=== PATIENT | female | born 1955 | race African-American/Black ===

== ENCOUNTER 2017-12-31 08:09 | Day surgery (SDC) | payer OTHER ==
[~2017-12-31] VITALS: Ht 157.5 cm; Wt 76.7 kg
[~2017-12-31 08:09] MED LIST: ACET325 PO; ALPR.25 PO; ALPR.5CR PO; ALPR1 PO; ATOR40TA PO; Anucort-Hc25 MG; Anucort-Hc25 MG PR; Aspirin EC81 MG; CEFP200 PO; CLON.1 PO; CONEST.9 TOP; Calcium 600 MG1 EACH; Calcium 600-D1 EACH PO; Canasa1000 MG; EDARBYCLOR 40-1 EACH PO; FIBER500 MG PO; Fiber Tabs625 MG PO; GABA100 PO; HYDR1TAB94; IBUP400 PO; ISOMON20 PO; LISHYD2025 PO; LOPE2C PO; Loperamide2 MG PO; METR500 PO; NAPR500 PO; NEBI5 PO; Nitrostat0.4 MG SL; Norvasc2.5 MG PO; Omeprazole20 M1 PO; POTA10T PO; POTCHL10ER PO; PREMARIN PATCH; PROM25; RIFA550T2 PO; SERT50 PO; VITAMIN D32000 UNIT PO; [UNRECOGNIZED DRUG - CODE] PR
== END 2017-12-31 10:05 | disposition home or self-care (01) ==
LOC: ORSCSDS 08:09
PROVIDERS: Internal Medicine Gastroenterology
PROC: 0DJD8ZZ Inspection of Lower Intestinal Tract, Via Natural or Artificial Opening Endoscopic (ICD-10-PCS; principal; 2017-12-31 09:30)
DX: R10.30 Lower abdominal pain, unspecified (principal); Z85.038 Personal history of other malignant neoplasm of large intestine; K64.8 Other hemorrhoids; R19.7 Diarrhea, unspecified; I10 Essential (primary) hypertension; Z87.891 Personal history of nicotine dependence; Z79.82 Long term (current) use of aspirin; E11.9 Type 2 diabetes mellitus without complications; Z79.899 Other long term (current) drug therapy
CPT/HCPCS: 82947; J7120

== ENCOUNTER 2019-04-05 09:43 | Day surgery (SDC) | payer OTHER ==
[~2019-04-05] VITALS: Ht 157.5 cm; Wt 72.9 kg
[~2019-04-05 09:43] MED LIST changes: +NAPR500; +Norco 5-325 Ta1 EACH; +Valtrex1000 MG
--- NOTE | 2019-04-05 11:17 | NUR ---
04/05/19 Edita Wells CALLED INTERPRETATIVE SERVICES PT (SPEAKS ONLY NIGERIAN) REFUSED SERVICES. PT WANTS DAUGHTER CJ TO INTERPRET. PT DOES UNDERSTAND A LITTLE BIT OF [place]. ASK PT IF SHE IS CONCERNED ABOUT SAFTEY AT HOME PT STATED "YES" THEN ASKED IF PATIENT WOULD LIKE SOME HELP AND PT STATED "NO"
--- NOTE | 2019-04-05 11:46 | NUR ---
04/05/19 1146 Amelia Cheung (Danay 2MG VERSED IV GIVEN PER DR. LYNNE.
--- NOTE | 2019-04-05 15:08 | NUR ---
04/05/19 1508 Amelia Cheung PT HAS FAINT EXPIRATORY WHEEZE IN LEFT LOWER LOBE. PT INSTRUCTED TO DEEP BREATHE & COUGH. LUNGS RE-EVALUATED AND CLEAR THROUGHOUT.
== END 2019-04-05 12:31 | disposition home or self-care (01) ==
LOC: ORSCSDS 09:43
PROVIDERS: Internal Medicine Gastroenterology
PROC: 0DBN8ZX Excision of Sigmoid Colon, Via Natural or Artificial Opening Endoscopic, Diagnostic (ICD-10-PCS; principal; 2019-04-05 11:00)
DX: Z12.11 Encounter for screening for malignant neoplasm of colon (principal); K64.8 Other hemorrhoids; Z85.038 Personal history of other malignant neoplasm of large intestine; I10 Essential (primary) hypertension; K76.0 Fatty (change of) liver, not elsewhere classified; G47.30 Sleep apnea, unspecified; E11.9 Type 2 diabetes mellitus without complications; Z79.82 Long term (current) use of aspirin; Z79.899 Other long term (current) drug therapy
CPT/HCPCS: 82947; 88305; J2250; J2704; J7120

== ENCOUNTER 2020-06-19 09:19 | Day surgery (SDC) | payer OTHER ==
[~2020-06-19] VITALS: Ht 157.5 cm; Wt 29.9 kg
[~2020-06-19 09:19] MED LIST changes: +ATORVASTATIN CA40 M1 PO; +Aspirin EC81 MG PO; +CALCIUM CIT 311 EACH PO; +EDARBYCLOR; +FIBER500 MG; +K-Dur10 MEQ PO; +NAPROXEN500 MG PO; +NITR.4SL SL; +OMEP20ER PO; +VITAMIN D325 MC3 PO
[2020-06-19] MEDS ORDERED: EDARBI40 MG PO (10:18)
--- NOTE | 2020-06-19 14:53 | NUR ---
06/19/20 1453 Amelia Cheung DELAYED ENTRY POST-PROCEDURE, PATIENT STOOD UP TO DRESS INDEPENDENTLY AFTER DENYING ASSISTANCE. PT STUMBLED BACKWARDS, BUMPING BACK OF HEAD AGAINST ROOM DOOR. NO OUTWARD SIGNS OF INJURY; PT DENIED DIZZINESS AND PAIN AT SITE. THIS RN HELPED PATIENT BACK TO BED, AND ASSISTED IN DRESSING. PT THEN ESCORTED VIA WHEELCHAIR TO VEHICLE. DAUGHTER INFORMED OF MISSTEP, VERBALIZES THANKS AND APPREAS EAGER TO TAKE PATIENT HOME, SHORT IN RESPONSES. DENIES NEEDS, CONCERNS OR QUESTIONS.
== END 2020-06-19 11:15 | disposition home or self-care (01) ==
LOC: ORSCSDS 09:19
PROVIDERS: Internal Medicine Gastroenterology
PROC: 0DJD8ZZ Inspection of Lower Intestinal Tract, Via Natural or Artificial Opening Endoscopic (ICD-10-PCS; principal; 2020-06-19 10:30)
DX: Z85.038 Personal history of other malignant neoplasm of large intestine (principal); K64.8 Other hemorrhoids; Z15.09 Genetic susceptibility to other malignant neoplasm; Z86.010 Personal history of colon polyps; I10 Essential (primary) hypertension; F41.8 Other specified anxiety disorders; Z87.891 Personal history of nicotine dependence; Z79.899 Other long term (current) drug therapy
CPT/HCPCS: 82947; J0461; J2405; J2704; J7120

== ENCOUNTER 2020-12-28 22:59 | Emergency (ER) | payer OTHER ==
[~2020-12-28] VITALS: Ht 157.5 cm; Wt 73.9 kg
[~2020-12-28 22:59] MED LIST changes: +EDARBI40 MG PO
[2020-12-28 23:33] LABS: BASOPHILS ABSOLUTE AUTO 0.03 K/mm3 (0.00-0.23); BASOPHILS PERCENT AUTO 0 % (0-2); EOSINOPHILS ABSOLUTE AUTO 0.12 K/mm3 (0.00-0.68); EOSINOPHILS PERCENT AUTO 1 % (0-6); Hematocrit 43.7 % (33.0-51.0); Hemoglobin 14.9 g/dL (11.5-16.0); IMMATURE GRAN ABSOLUTE AUTO 0.11 K/mm3 (0.00-0.10); IMMATURE GRAN PERCENT AUTO 1 % (0-1); LYMPHOCYTES ABSOLUTE AUTO 3.93 K/mm3 (0.84-5.20); LYMPHOCYTES PERCENT AUTO 45 % (21-46); MONOCYTES ABSOLUTE AUTO 0.45 K/mm3 (0.16-1.47); MONOCYTES PERCENT AUTO 5 % (4-13); Mean Corpuscular HGB 28.2 pg (26.0-34.0); Mean Corpuscular HGB Conc 34.1 g/dL (31.5-36.5); Mean Corpuscular Volume 83 fL (80-100); NEUTROPHILS ABSOLUTE AUTO 4.11 K/mm3 (1.96-9.15); NEUTROPHILS PERCENT AUTO 47 % (41-73); RDW Coefficient Variation 12.7 % (11.7-14.2); RDW Standard Deviation 38.3 fL (35.1-46.3); Red Blood Cell Count 5.28 M/mm3 (3.80-5.20); White Blood Cell Count 8.75 K/mm3 (4.00-11.30)
[2020-12-28 23:37] LABS: Mean Platelet Volume 10.4 fL (9.1-12.4); Platelet Count 194 K/mm3 (150-400)
[2020-12-28 23:41] LABS: International Normalized Ratio 0.93
[2020-12-28 23:53] LABS: Alanine Aminotransfer (ALT/SGP 28 U/L (12-78); Albumin/Globulin Ratio 1.1 (0.8-1.8); Alk Phos 110 U/L (50-136); Anion Gap 9 mmol/L (6-16); Aspartate Aminotrans (AST/SGOT 12 U/L (12-37); Bilirubin, Total 0.4 mg/dL (0.1-1.0); Blood Urea Nitrogen 17 mg/dL (8-24); Bun/Creatinine Ratio 23.1 (12.0-20.0); CO2, Blood 23 mmol/L (21-32); Calcium, Blood 9.5 mg/dL (8.5-10.1); Chloride, Blood 111 mmol/L (98-108); Creatinine, Blood 0.74 mg/dL (0.40-1.00); Globulin, Blood 3.5 g/dL (2.2-4.0); Glomerular Filtration Rate >60 (60-); Glucose, Blood 123 mg/dL (70-99); Potassium, Blood 3.3 mmol/L (3.5-5.5); Sodium, Blood 143 mmol/L (136-145); Total Protein, Blood 7.5 g/dL (6.4-8.2); Troponin I <0.015 ng/mL (0.000-0.040)
[2020-12-29 00:46] LABS: Source, Urine Clean Catch
[2020-12-29 00:51] LABS: Bilirubin, Urine Neg (Neg); Blood, Urine 1+ (Neg); Glucose Qualitative, Urine Neg (Neg); Ketones, Urine Neg (Neg); Leukocyte Esterase, Urine Neg (Neg); Nitrite, Urine Neg (Neg); Protein, Urine Neg (Neg); Urobilinogen, Urine NORM (Normal)
[2020-12-29] MEDS ORDERED: Norco 5-325 Ta1 EACH PO (00:59)
[2020-12-29] MEDS ORDERED: ALBU90OI INH (00:59)
[2020-12-29 01:03] LABS: Appearance, Urine Clear (Clear); Color, Urine Yellow (P-Yellow)
[2020-12-29 01:04] LABS: Bacteria Not Seen /hpf; Red Blood Cells, Urine 0-2 /hpf (0-2); Squamous Epithelial Cells Few /hpf (Few); White Blood Cells, Urine Rare /hpf (0-5)
== END 2020-12-29 01:27 | disposition home or self-care (01) ==
LOC: ER 22:59
PROVIDERS: Emergency Medicine
DX: S22.42XA Multiple fractures of ribs, left side, initial encounter for closed fracture (principal); I10 Essential (primary) hypertension; Z79.82 Long term (current) use of aspirin; Z79.899 Other long term (current) drug therapy; Z87.891 Personal history of nicotine dependence; V50.6XXA Passenger in pick-up truck or van injured in collision with pedestrian or animal in traffic accident, initial encounter; Y92.410 Unspecified street and highway as the place of occurrence of the external cause
CPT/HCPCS: 70450; 71045; 71260; 72125; 74177; 80053; 81001; 83605; 83690; 84484; 85025; 85610; 93005; 93010; 96374-59; 99284-25; A9270; J3010; Q9967

== ENCOUNTER → 2022-12-02 | Outpatient (CLI) | payer OTHER ==
[~2022-12-02] MED LIST changes: +ALBU90OI INH; +Norco 5-325 Ta1 EACH PO
[2022-12-02 14:33] LABS: U Amphetamine Screen Not Detected; U Barbituate Screen Not Detected; U Benzodiazapine Screen DETECTED; U Buprenorphine Screen Not Detected; U Cannabinoids Screen Not Detected; U Cocaine Screen Not Detected; U Methadone Screen Not Detected; U Methamphetamine Screen Not Detected; U Opiates Screen Not Detected; U Oxycodone Screen Not Detected; U Phencyclidine Screen Not Detected; U Propoxyphene Screen Not Detected
== END | disposition home or self-care (01) ==
LOC: LAB SHORT 08:52 → LAB 08:52
PROVIDERS: Nurse Practitioner Family
DX: Z51.81 Encounter for therapeutic drug level monitoring (principal); Z79.899 Other long term (current) drug therapy

== ENCOUNTER → 2023-06-10 | Outpatient (CLI) | payer OTHER | END | disposition home or self-care (01) | LOC: LAB SHORT 15:22 → LAB 15:22 | DX: R30.0 Dysuria (principal) | CPT/HCPCS: 87086 ==

== ENCOUNTER 2025-06-23 08:04 | Day surgery (SDC) | payer OTHER ==
[~2025-06-23] VITALS: Ht 154.9 cm; Wt 72.9 kg
[~2025-06-23 08:04] MED LIST changes: +Amlodipine Bes2.5 MG; +BUSP5; +CLONIDINE1 EAC3; +FENOFIBRATE48 MG
--- NOTE | 2025-06-23 08:35 | NUR ---
06/23/25 0835 Ambar Baker S DAUGHTER IN WITH PT.
[2025-06-23 09:59] VITALS: BP 107/79
--- NOTE | 2025-06-23 10:15 | NUR ---
06/23/25 1015 Radha Rebollar BP MID 90S TO LOW 100S SBP/50S-72 DBP IN STEPDOWN. MD NOTIFIED. MD ORDERED TO FINISH 200ML OF LR. STATED LONG PT DID NOT FEEL DIZZY WITH BP 107/90, PT OK TO DC HOME. PT DENIED FEELING DIZZY WHILE GETTING DRESSED. IV DISCHARGED AND PT DISCHARGED HOME WITH DAUGHTER.
== END 2025-06-23 10:07 | disposition home or self-care (01) ==
LOC: ORSCSDS 08:04
PROVIDERS: Internal Medicine Gastroenterology
PROC: 0DBP8ZX Excision of Rectum, Via Natural or Artificial Opening Endoscopic, Diagnostic (ICD-10-PCS; principal; 2025-06-23 09:30)
DX: Z15.09 Genetic susceptibility to other malignant neoplasm (principal); Z85.038 Personal history of other malignant neoplasm of large intestine; K62.1 Rectal polyp; Z90.49 Acquired absence of other specified parts of digestive tract; I10 Essential (primary) hypertension; G47.33 Obstructive sleep apnea (adult) (pediatric); K21.9 Gastro-esophageal reflux disease without esophagitis; E66.9 Obesity, unspecified; Z68.30 Body mass index [BMI] 30.0-30.9, adult; Z79.82 Long term (current) use of aspirin; Z79.899 Other long term (current) drug therapy
CPT/HCPCS: 88305; J2704; J7120